=== PATIENT | male | born 2000 | race Two or more races ===

== ENCOUNTER 2021-12-20 02:51 | Emergency (ER) | payer SELFPAY ==
[2021-12-20] MEDS ORDERED: predniSONE 20 MG Tab ONE (04:00)
== END 2021-12-20 04:04 | disposition home or self-care (01) ==
LOC: LB.ED 02:51
DX: L25.9 Unspecified contact dermatitis, unspecified cause (principal); Z79.899 Other long term (current) drug therapy
CPT/HCPCS: 99283; J7512